=== PATIENT | female | born 1945 | race Caucasian/White ===

== ENCOUNTER 2019-08-19 11:01 | Emergency (ER) | payer MEDICARE, BC ==
[2019-08-19 11:19] VITALS: BP 136/70; PULSE 65
[2019-08-19 11:49] LABS: ANION GAP 14.1 mEq/L (7-13); CHLORIDE,CL 102 mmol/L (98-107); SODIUM,NA 137 mmol/L (136-145)
--- NOTE | 2019-08-19 12:18 | EDM.PDOC ---
ED HPI GENERAL MEDICAL PROBLEM - General Chief Complaint: Chest Pain Stated Complaint: AMBULANCE Time Seen by Provider: 08/19/19 11:35 Source of Information: Reports: Patient History Limitations: Reports: No Limitations - History of Present Illness INITIAL COMMENTS - FREE TEXT/NARRATIVE: She comes emergency department today from home with complaints of chest pain. Approximately 2 hours prior to arrival in the emergency department the patient was standing when she suddenly felt this shooting pain on the left lower rib cage that radiated up to her left shoulder. This shooting pain was constant and it vacillated over the next 10 to 15 minutes and resolved on its own. She has had no recent falls trauma or injury. She had no shortness of breath diaphoresis or nausea with this. She became quite anxious after this and was concerned for her heart. She then summoned the ambulance. Upon arrival she has no shortness of breath no chest pain her anxiety is resolved after she received some Ativan in the ambulance. She has no abdominal pain nausea or vomiting. No fever no chills. No night sweats. She has not been exposed anyone ill. No loss of taste or smell. She is asymptomatic in the emergency department upon arrival. Did state that this is a normal sensation that she has when she has heartburn although it was much more intense than normal. Not been struggling with heartburn recently. - Related Data Allergies Allergy/AdvReac Type Severity Reaction Status Date / Time No Known Allergies Allergy Verified 11/09/15 12:54 Home Meds: Home Meds Losartan Potassium [Cozaar] 100 mg PO DAILY 11/09/15 [History] Simvastatin [Zocor] 1 tab PO DAILY 11/09/15 [History] Acetaminophen [Pain Relief] 325 mg PO ASDIRECTED PRN 12/03/17 [History] Famotidine [Pepcid AC] 10 mg PO DAILY PRN 12/03/17 [History] Past Medical History Cardiovascular History: Reports: High Cholesterol, Hypertension ED ROS GENERAL - Review of Systems Review Of Systems: Comprehensive ROS is negative, except as noted in HPI. ED EXAM, GENERAL - Physical Exam Exam: See Below Exam Limited By: No Limitations General Appearance: Alert, WD/WN, No Apparent Distress Eye Exam: Bilateral Eye: EOMI, PERRL Ears: Normal External Exam Nose: Normal Inspection Throat/Mouth: Normal Inspection, Normal Lips, Normal Oropharynx Head: Atraumatic, Normocephalic Neck: Normal Inspection, Supple, Lymphadenopathy (L) Respiratory/Chest: No Respiratory Distress, Lungs Clear, Normal Breath Sounds, No Accessory Muscle Use, Chest Non-Tender Cardiovascular: Normal Peripheral Pulses, Regular Rate, Rhythm GI/Abdominal: Normal Bowel Sounds, Soft, Non-Tender (Female) Exam: Deferred Rectal (Female) Exam: Deferred, Perirectal Abscess Back Exam: Normal Inspection Extremities: Normal Inspection, Normal Range of Motion, Normal Capillary Refill Neurological: Alert, Oriented, Normal Cognition, No Motor/Sensory Deficits Psychiatric: Normal Affect, Normal Mood Skin Exam: Warm, Dry, Intact, Normal Color, No Rash EKG INTERPRETATION EKG Date: 08/19/19 Time: 11:10 Rhythm: NSR Rate (Beats/Min): 67 [place]: Normal P-Wave: Present QRS: Normal ST-T: Normal QT: Normal Course - Vital Signs Last Recorded V/S: Last Vital Signs Temp 98.2 F 08/19/19 11:15 Pulse 65 08/19/19 11:15 Resp 18 08/19/19 11:15 BP 136/70 08/19/19 11:15 Pulse Ox 94 L 08/19/19 11:15 - Orders/Labs/Meds Orders: Active Orders 24 hr Category Date Time Status EKG 12 Lead [EKG Documentation Completion] [RC] STAT Care 08/19/19 11:15 Active Labs: Laboratory Tests 08/19/19 08/19/19 08/19/19 Range/Units 11:21 11:21 11:21 WBC 3.8 L (5.0-10.0) 10^3/uL RBC 4.21 (4.2-5.4) 10^6/uL Hgb 12.7 (12.0-16.0) g/dL Hct 38.0 (37.0-47.0) % MCV 90.3 (80-100) fL MCH 30.2 (27.0-34.0) pg MCHC 33.4 (33.0-35.0) g/dL Plt Count 163 (150-450) 10^3/uL Neut % (Auto) 48.4 (42.2-75.2) % Lymph % (Auto) 38.8 (20.5-50.1) % [place] % (Auto) 8.4 H (2-8) % Eos % (Auto) 3.9 H (1.0-3.0) % Baso % (Auto) 0.5 (0.0-1.0) % D-Dimer, Quantitative < 100 (0-400) ng/mL Sodium 137 (136-145) mmol/L Potassium 4.1 (3.5-5.1) mmol/L Chloride 102 (98-107) mmol/L Carbon Dioxide 25 (21-32) mmol/L Anion Gap 14.1 H (7-13) mEq/L BUN 29 H (7-18) mg/dL Creatinine 1.15 H (0.55-1.02) mg/dL Est Cr Clr Drug Dosing 37.62 mL/min Estimated GFR (MDRD) 46 BUN/Creatinine Ratio 25.2 (No establ ref range) Glucose 100 H (74-99) mg/dL Calcium 8.8 (8.5-10.1) mg/dL Total Bilirubin 1.2 H (0.2-1.0) mg/dL AST 22 (15-37) U/L ALT 26 (14-59) U/L Alkaline Phosphatase 64 (46-116) U/L Troponin I < 0.017 (0.000-0.056) ng/mL Total Protein 6.3 L (6.4-8.2) g/dL Albumin 3.4 (3.4-5.0) g/dL Globulin 2.9 Albumin/Globulin Ratio 1.2 - Radiology Interpretation Free Text/Narrative:: Chest x-ray negative for any acute findings. - Re-Assessments/Exams Free Text/Narrative Re-Assessment/Exam: 08/19/19 E.g. and labs were negative. She has not had any recurrence of her pain. We related to heartburn and/or esophageal spasm. Does not appear to be cardiac in nature. We will discharge her home and if she has another episode like this I want her to try [id number] Maalox or Mylanta if it does not resolve she needs to recheck in the clinic or the emergency department. She is u nderstanding this her questions are answered. Departure - Departure Time of Disposition: 12:25 Disposition: Home, Self-Care 01 Clinical Impression: Nonspecific chest pain Instructions: Nonspecific Chest Pain, Adult, [id number] Referrals: PCP,Unobtain [Primary Care Provider] - Forms: ED Department Discharge Additional Instructions: If the episode reoccurs. Try some OTC Maalox or Mylanta see if that resolves it. If not recheck in the clinic or ED. Return to the ED if new or worsening symptoms. Sepsis Event Note (ED) - Evaluation Sepsis Screening Result: No Definite Risk - Focused Exam Vital Signs: Vital Signs Temp Pulse Resp BP Pulse Ox 08/19/19 11:15 98.2 F 65 18 136/70 94 L - My Orders Last 24 Hours: My Active Orders 08/19/19 11:15 EKG 12 Lead [EKG Documentation Completion] [RC] STAT - Assessment/Plan Last 24 Hours: My Active Orders 08/19/19 11:15 EKG 12 Lead [EKG Documentation Completion] [RC] STAT Assessment:: nonspecific chest pain Plan: If the episode reoccurs. Try some OTC Maalox or Mylanta see if that resolves it. If not recheck in the clinic or ED. Return to the ED if new or worsening symptoms.
--- NOTE | 2019-08-19 13:01 | CR ---
EXAMINATION: Chest 2V SEX: Female AGE: 74 years CLINICAL HISTORY: 74-year-old female complaining of chest pain. Comparison CXR 09 November 2015. INTERPRETATION: No acute new cardiopulmonary abnormality. 1. Chronic shaggy accentuation of the interstitial markings and old right middle lobe atelectasis or fibrosis. 2. Normal cardiac silhouette. No pulmonary vascular congestion, cephalization of flow, alveolar edema or dependent pleural effusion. (External surveillance system monitor leads) 3. No new lung mass, hilar lymphadenopathy or focal lobar pneumonia. 4. No atelectasis/collapse. 5. No pneumothorax or pneumomediastinum. 6. 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 CONCLUSION:
== END 2019-08-19 12:42 | disposition home or self-care (01) ==
LOC: DL.ED 11:01
DX: R07.81 Pleurodynia (principal); E78.00 Pure hypercholesterolemia, unspecified; I10 Essential (primary) hypertension; Z79.899 Other long term (current) drug therapy
CPT/HCPCS: 36415; 71046; 80053; 84484; 85025; 85379; 93005; 99285-25

== ENCOUNTER 2022-05-12 14:31 | Emergency (ER) | payer MEDICARE, BC ==
[2022-05-12 14:49] VITALS: BP 181/93; PULSE 80
== END 2022-05-12 15:17 | disposition home or self-care (01) ==
LOC: DL.ED 14:31
DX: S63.502A Unspecified sprain of left wrist, initial encounter (principal); E78.00 Pure hypercholesterolemia, unspecified; I10 Essential (primary) hypertension; Z79.899 Other long term (current) drug therapy; X50.9XXA Other and unspecified overexertion or strenuous movements or postures, initial encounter
CPT/HCPCS: 73110-LT; 99283

== ENCOUNTER 2024-11-30 07:05 | Day surgery (SDC) | payer MEDICARE, BC ==
[2024-11-30] MEDS ORDERED: Lactated Ringers 1,000 ML IV ONE (07:06)
[2024-11-30] MEDS ORDERED: Propofol 200 MG/20 ML SDV IV ONE (07:06)
[2024-11-30] MEDS: Lactated Ringers 1,000 ML IV SCH (07:29)
[2024-11-30 09:39] VITALS: BP 143/66; PULSE 57
[2024-11-30] MEDS ORDERED: Propofol 200 MG/20 ML SDV ONE (10:05)
== END 2024-11-30 09:56 | disposition home or self-care (01) ==
LOC: DL.ENDO 07:05
PROVIDERS: ATTEND Internal Medicine Gastroenterology
DX: K62.6 Ulcer of anus and rectum (principal); K57.30 Diverticulosis of large intestine without perforation or abscess without bleeding; I12.9 Hypertensive chronic kidney disease with stage 1 through stage 4 chronic kidney disease, or unspecified chronic kidney disease; N18.9 Chronic kidney disease, unspecified
CPT/HCPCS: 45380; 88305; J2704; J7120; S5010; 00811; 99100